=== PATIENT | female | born 1975 | race Caucasian/White ===

== ENCOUNTER 2022-04-03 01:28 | Day surgery (SDC) | payer OTHER, SELFPAY ==
[2022-04-01 08:52] VITALS: BMI 30.2
--- NOTE | 2022-04-01 08:59 | PC.NURSE ---
Report to the Outpatient Waiting Room, entrance under the green pavilion located off [facility], at time _1230 on date _04/03/22__. OR Time: __1430_. - You and your visitor will be asked a series of questions to screen for COVID 19 for your protection. - Only one visitor is allowed at this time. - The patient visitor is requested to leave or wait in car when not with patient. - A mask is required within the hospital. Patients may have clear liquids (water, carbonated beverages, clear teas, apple juice) until 3 hours prior to surgery with a maximum of 20 ounces. - No food from midnight until time of surgery - Infants may have breast milk until 4 hours before surgery, infant formula 6 hours prior to surgery. - Children will be allowed to drink immediately following surgery. If applicable, please bring a bottle or sippy cup to assist with drinking. Juice, water, soda, and popsicles are readily available. For infants on formula, please bring formula the day of surgery. Pacifiers are allowed. Take the following medications with a SIP of water the morning of surgery: ___SYNTHROID, ALPRAZOLAM Medications to discontinue per physician __NONE Date to take last dose Please no make-up, nail latvian, hairspray, perfume, deodorant, or body powder the day of surgery. No jewelry (including any body piercings) or valuables the day of surgery, leave them at home. Please take a shower or bath the night before, or the morning of, surgery with an antibacterial soap. Wear comfortable, loose fitting clothing. Children are encouraged to wear pajamas. - Jewelry must be removed prior to entering the operating room. Rings and piercings that are not removed may be cut off. - The hospital will not accept responsibility for valuables. - Please leave all valuables, including medications, at home the day of surgery. If you are going home after surgery, a licensed medical driver must drive you home. - NO public transportation without another adult. - We recommend that an adult stay with you for 24 hours following discharge. - We also recommend that you do not drive, make important decision, drink alcoholic beverages, or take any drugs that were not prescribed by your health care provider for at least 24 hours after your discharge time. For Pediatric surgeries, we recommend two adults accompany the child home (only one inside the building at this time). Follow any additional instructions given to you from your surgeon. If you or anyone in your household have experienced Covid symptoms in the past week, please notify your surgeon or the nurse liaison at the phone number below for possible testing. Telephone instructions given to __PATIENT____and asked if any additional questions and then verbalized understanding. Patient advised to call surgeon office or pre surgery nurse liaison [phone] if any additional questions.
[2022-04-03] VITALS (7 sets, daily range): BP systolic 118–143; BP diastolic 63–78; PULSE 68–104; RESP 12–23; TEMP 36.4–36.9; O2SAT 98–100
--- NOTE | ~2022-04-03 | XR_ITS ---
XR surgery orthopedic DATE: 04/03/2022 15:17 INDICATION: Ligament repair at the first metacarpophalangeal joint TECHNIQUE: 4 spot C-arm images 44 seconds fluoroscopy time 0.4570 mGy COMPARISON: None FINDINGS: Subcutaneous emphysema is noted at the base of the first digit. No bony abnormality is iden tified. IMPRESSION: Ligament repair Reviewed, dictated and finalized at [facility]. Reviewed, dictated and finalized at [facility]. IMPRESSION: Ligament repair
--- NOTE | 2022-04-03 07:14 | WPDHPUPDATE1 ---
History and Physical Update Update Date/Time: 04/03/22 07:14 History and Physical has been reviewed, including an updated exam of the patient. There are NO changes in the patient's condition. Risks, benefits, and alternatives have been discussed and questions answered. Patient agrees to proceed with procedure.
[2022-04-03] MEDS: LACTATED RINGERS 1,000 ML 30 ML IV CONT ×2 (12:00→15:41)
--- NOTE | 2022-04-03 12:20 | P.PNAN_ITS ---
Anes - Initial Pre Proc Eval Procedure: Operation Date: 04/03/22 14:30 Proposed Procedures p Repair of Ulnar Collateral Ligament Left First Metacarpophalangeal Joint - Usman Gregory MD Date/Time: 04/03/22 12:20 Surgeon: Usman Gregory MD Pre Op Diagnosis: avulsion ulnar collateral ligament left 1st mpj Patient Data Age: 47 Gender: F Height: 1.57 m Weight: 74.1 kg Last Vital Signs Temp 36.9 C 04/03/22 11:37 Pulse 68 04/03/22 11:37 Resp 20 04/03/22 11:37 BP 118/73 04/03/22 11:37 Pulse Ox 98 04/03/22 11:37 O2 Del Method Room Air 04/03/22 11:37 Allergies Allergy/AdvReac Type Severity Reaction Status Date / Time dichloralphenazone Allergy Severe Anaphylaxis Verified 04/01/22 09:06 isometheptene Allergy Severe Anaphylaxis Verified 04/01/22 09:06 Penicillins Allergy Severe Anaphylaxis Verified 04/03/22 11:43 clarithromycin Allergy Intermediate tachycardia Verified 04/01/22 09:06 Home Medications Medication Instructions Recorded Confirmed Type alprazolam 1 mg tablet 1 mg PO PRN PRN Anxiety 04/01/22 04/03/22 History atomoxetine 40 mg capsule 80 mg PO DAILY 04/01/22 04/03/22 History diclofenac sodium 75 mg 75 mg PO DAILY 04/01/22 04/03/22 History tablet,delayed release levothyroxine 25 mcg tablet 25 mcg PO DAILY 04/01/22 04/03/22 History (Synthroid) norethindrone acetate 0.5 1 tablet PO DAILY 04/01/22 04/03/22 History mg-ethinyl estradiol 2.5 mcg tablet (Fyavolv) simvastatin 20 mg tablet 20 mg PO DAILY 04/01/22 04/03/22 History topiramate 50 mg tablet 50 mg PO DAILY 04/01/22 04/03/22 History valacyclovir 500 mg tablet 500 mg PO DAILY 04/01/22 04/03/22 History conjugated estrogens 0.625 mg/gram 1,000 mg vaginal 2XW 04/03/22 04/03/22 History vaginal cream (Premarin) Patient hx anesthesia problems: post op nausea/vomiting Family hx anesthesia problems: none Results Review: All pre-operative results and documents have been reviewed as part of the pre- operative evaluation. [facility] Past Medical History Medical History Anxiety Hx of migraines Hyperlipidemia Hypothyroid Sarcoidosis Social History Social History Smoking packs per day: 0.25 Smoking cigarettes per day: 5.0 Years smoked: 15 Smoking pack-years: 3.75 Additional smoking assessment comments: STOPPED IN JANUARY Alcohol intake: current Drinks per week: 12 Living arrangements: alone Anes - Eval Final PreProcedure Day of Procedure 04/03/22 12:20 Patient weight: overweight Heart: regular rate and rhythm Lungs: decreased breath sounds Airway: Mallampati scale class II Neurological: alert and oriented Last oral intake: >/= 8 hours ASA classification: III Emergent: no Anesthetic plan: proceed Anesthesia type and monitoring: general LMA and standard monitoring Results Review: All pre-operative results and documents have been reviewed as part of the pre- operative evaluation. Informed Consent: The patient's anesthetic plan and its attendant risks and benefits were discussed with the patient/family/POA. Questions were solicited and answers provided to the satisfaction of the patient/family/POA.
[2022-04-03] MEDS: LIDO 1%/EPINEPHRINE 1:100,000 20 ML VIAL 10 ML INFILTRATE (14:08)
--- NOTE | 2022-04-03 15:54 | P.OP_ITS ---
Procedure Note - Detailed Date of Procedure 04/03/22 Pre-op Diagnosis avulsion ulnar collateral ligament left 1st mpj Post-op Diagnosis Same Procedure Performed Acute repair of an unstable ulnar collateral ligament rupture of the left 1st metacarpophalangeal joint Surgeon Usman Gregory MD [employer] [place] [facility] Anesthesia General Indications Unstable rupture of the ulnar collateral ligament without fracture left 1st metacarpal phalangeal joint. Findings Same Description of Procedure The left thumb was marked in holding area with the patient's consent. She was taken to the operating room where she was placed supine on the operating table. She was given general anesthesia and the left upper extremity was prepped and draped in usual fashion. A time-out was held and confirmed. The surgical site was marked for an ulnar incision centered on the metacarpophalangeal joint. This area was locally infiltrated with 1% lidocaine with epinephrine. The extremity was exsanguinated and the tourniquet inflated to 250 mmHg. The incision was made and dissection was carried through the subcutaneous tissue to identify cutaneous nerves. One such was identified and held out of the way with a vessel loop. The Stener lesion was identified. The surrounding scar tissue was excised exposing the proximal stump. There was no bone attached. The abductor aponeurosis was released along the ulnar border of the extensor mechanism. The 2 ends of the ligament were identified. They were released from adhesions allowing them to be properly oriented. The Arthrex internal brace system was utilized. The fenestration in the volar base of the distal phalanx was made and the 1st anchor set with the suture and SutureTape. The ligament ends were brought together and the repair with FiberWire was accomplished. The 2nd fenestration over the dorsal head of the metacarpal was made and the 2nd anchor inserted there retaining and tightening the Arthrex internal brace reinforcing tape. This provided adequate stability of the ulnar collateral ligament and allowed satisfactory passive flexion and extension. Several images were made and appears the metacarpophalangeal joint is somewhat tight and will require therapy. The abductor aponeurosis was repaired with interrupted 3-0 Vicryl suture. The skin was closed with a running 4-0 intradermal Monocryl. A small absorbent thumb spica bandage and splint were applied the tourniquet had been released at the time of wound closure. The patient was discharged from the operating room stable condition Implants Arthrex fiber wire and suture tape and absorbable anchors Estimated Blood Loss -2.0 Tourniquet Time 86 Drains No Packing No Pathology None sent Complications No immediate complications Condition Stable Disposition PACU
[2022-04-03] MEDS: fentaNYL CITRATE INJ (*CRX) 100 MCG/2 ML VIAL 25 MCG IV PUSH ×2 (16:02→16:03)
[2022-04-03] MEDS: oxyCODONE HCL (*CRX) 5 MG TAB IR PO (17:10)
== END 2022-04-03 17:25 | disposition home or self-care (01) ==
PROVIDERS: Visit Provider Plastic Surgery
PROC: (CPT 26540; principal; 2022-04-03 14:30)
DX: S63.642A Sprain of metacarpophalangeal joint of left thumb, initial encounter (principal); X50.0XXA Overexertion from strenuous movement or load, initial encounter; F41.9 Anxiety disorder, unspecified; E78.5 Hyperlipidemia, unspecified; E03.9 Hypothyroidism, unspecified; D86.9 Sarcoidosis, unspecified; Z87.891 Personal history of nicotine dependence; K21.9 Gastro-esophageal reflux disease without esophagitis
CPT/HCPCS: 26540; 99199; A9270; C1713; J1100; J1885; J2250; J2405; J2704; J3010; J7120